=== PATIENT | male | born 1950 | race Caucasian/White ===

== ENCOUNTER 2018-09-02 05:34 | Inpatient (IN) ==
[2018-09-02] MEDS ORDERED: ceFAZolin 1,000 MG VIAL ONE (05:54)
[2018-09-02] MEDS ORDERED: VANCOMYCIN 1,000 MG VIAL ONE (05:54)
[2018-09-02] MEDS ORDERED: ceFAZolin 1,000 MG in SYRINGE 1 EACH IV ONE (06:00)
[2018-09-02] MEDS ORDERED: VANCOMYCIN INJ 1,000 MG in SODIUM CHLORIDE 0.9% 250 ML IV ONE (06:00)
[2018-09-02] MEDS: LACTATED RINGERS 1,000 ML IV SCH (06:30)
[2018-09-02] MEDS ORDERED: ROPIVACAINE 0.5% 30 ML VIAL ONE (06:33)
[2018-09-02] MEDS ORDERED: TRANEXAMIC ACID 1,000 MG/10 ML VIAL ONE (06:36)
[2018-09-02] MEDS ORDERED: LACTULOSE 20 GM/30 ML UDCUP PO PRN (06:56)
[2018-09-02] MEDS ORDERED: ONDANSETRON 4 MG/2 ML VIAL IV PRN ×2 (06:56→08:57)
[2018-09-02] MEDS ORDERED: NALOXONE 0.4 MG/ML VIAL IV PRN (06:56)
[2018-09-02] MEDS ORDERED: PROMETHAZINE 25 MG/1 ML VIAL IM PRN (06:56)
[2018-09-02] MEDS ORDERED: BISACODYL 10 MG SUPP RECTAL PRN (06:56)
[2018-09-02] MEDS ORDERED: TEMAZEPAM 7.5 MG CAPSULE PO PRN (06:56)
[2018-09-02] MEDS ORDERED: MAGNESIUM HYDROXIDE SUSP 30 ML UDCUP PO PRN (06:56)
[2018-09-02] MEDS ORDERED: MORPHINE 4 MG/1 ML VIAL IV PRN ×2 (06:56→09:36)
[2018-09-02] MEDS ORDERED: MORPHINE PCA 30 MG/30 ML SYRINGE IV ONE (08:51)
[2018-09-02] MEDS ORDERED: SEVOFLURANE 1 UNIT/15 MINUTE INH ONE (08:55)
[2018-09-02] MEDS ORDERED: PROPOFOL 200 MG/20 ML VIAL IV ONE (08:55)
[2018-09-02] MEDS ORDERED: MIDAZOLAM 2 MG/2 ML VIAL ONE (08:56)
[2018-09-02] MEDS ORDERED: fentaNYL 100 MCG/2 ML VIAL ONE ×2 (08:56)
[2018-09-02] MEDS ORDERED: ePHEDrine 50 MG/ML AMP ONE (08:57)
[2018-09-02] MEDS ORDERED: SODIUM CHLORIDE 0.9% 100 ML IV ONE (08:57)
[2018-09-02] MEDS ORDERED: ONDANSETRON 4 MG/2 ML VIAL ONE (08:57)
[2018-09-02] MEDS ORDERED: LACTATED RINGERS 1,000 ML IV ONE (08:57)
[2018-09-02] MEDS ORDERED: GLYCOPYRROLATE 0.4 MG/2 ML VIAL ONE (08:57)
[2018-09-02] MEDS ORDERED: ACETAMINOPHEN 1,000 MG/100 ML VIAL IV ONE (08:57)
[2018-09-02] MEDS: MORPHINE PCA 30 MG/30 ML SYRINGE IV SCH ×2 (09:02→17:36)
[2018-09-02] MEDS: HYDROmorphone 2 MG/1 ML VIAL IV PRN ×4 (09:02→09:58)
[2018-09-02] MEDS: DUTASTERIDE 0.5 MG CAPSULE PO SCH (10:34)
[2018-09-02] MEDS: TAMSULOSIN 0.4 MG CAPSULE PO SCH ×2 (10:34→20:08)
[2018-09-02] MEDS: DOCUSATE SODIUM 100 MG CAPSULE PO SCH ×2 (10:34→20:08)
[2018-09-02] MEDS: sulfaSALAzine 500 MG TABLET PO SCH ×2 (10:34→20:08)
[2018-09-02] MEDS: hydroCHLOROthiazide 12.5 MG CAPSULE PO SCH (10:34)
[2018-09-02] MEDS: ATENOLOL 50 MG TABLET PO SCH (10:35)
[2018-09-02] MEDS ORDERED: PNEUMOCOCCAL VACCINE (13 VALENT) 0.5 ML SYRINGE IM ONE (10:39)
[2018-09-02] MEDS ORDERED: INFLUENZA VIRUS VACCINE 0.5 ML SYRINGE IM ONE (10:39)
[2018-09-02] MEDS: POTASSIUM CHLORIDE 10 MEQ TABLET PO SCH (10:56)
[2018-09-02] MEDS: ceFAZolin 2,000 MG in PREMIX 1 EACH IV SCH ×2 (12:55→20:08)
[2018-09-02] MEDS: FONDAPARINUX 2.5 MG/0.5 ML SYRINGE SUBCUT SCH (17:54)
[2018-09-03 04:45] LABS: Basophils % 0.1 % (0.0-0.8); Eosinophils # 0.1 10*3/uL (0.0-0.87); Eosinophils % 0.6 % (0.00-10.9); Hematocrit 33.5 VOL% (42.0-52.0); Hemoglobin 10.9 GM/DL (14.0-18.0); Immature Granulocytes % 0.3 %; Immature Granulocytes Absolute 0.03 #; Lymphocytes # 1.5 10*3/uL (1.4-4.0); Lymphocytes % 17.7 % (21.2-54.2); Mean Corpuscular HGB Conc 32.5 GM/DL (32-36); Mean Corpuscular Hemoglobin 31 PG (27-34); Mean Corpuscular Volume 95.2 FL (87-102); Mean Platelet Volume 10.6 FL (9.6-12.0); Monocytes # 1.3 10*3/uL (0.11-0.8); Monocytes % 14.9 % (1.7-12.7); Neutrophils # 5.7 10*3/uL (1.4-7.4); Neutrophils % 66.4 % (38.7-73.9); Platelet Count 151 T/CUMM (130-400); Red Blood Count 3.52 MC/CUMM (3.8-5.5); Red Cell Distribution Width 12.7 % (9.3-17.3); White Blood Count 8.6 T/CUMM (4-12)
[2018-09-03 05:07] LABS: Calcium 8.1 MG/DL (8.5-10.1); Osmolality,Calculated 279.5 MOS/KG (273-304); Potassium 3.5 MMOL/L (3.5-5.1)
[2018-09-03] MEDS: sulfaSALAzine 500 MG TABLET PO SCH ×2 (09:36→21:44)
[2018-09-03] MEDS: DUTASTERIDE 0.5 MG CAPSULE PO SCH (09:37)
[2018-09-03] MEDS: TAMSULOSIN 0.4 MG CAPSULE PO SCH ×2 (09:37→21:44)
[2018-09-03] MEDS: hydroCHLOROthiazide 12.5 MG CAPSULE PO SCH (09:37)
[2018-09-03] MEDS: POTASSIUM CHLORIDE 10 MEQ TABLET PO SCH (09:39)
[2018-09-03] MEDS: ATENOLOL 50 MG TABLET PO SCH (09:39)
[2018-09-03] MEDS: DOCUSATE SODIUM 100 MG CAPSULE PO SCH ×2 (09:39→21:44)
[2018-09-03] MEDS: LACTATED RINGERS 1,000 ML IV SCH ×2 (09:40→15:40)
[2018-09-03] MEDS: MORPHINE PCA 30 MG/30 ML SYRINGE IV SCH ×2 (09:41→16:14)
[2018-09-03] MEDS: oxyCODONE/ACETAMINOPHEN 5-325 MG TABLET PO PRN (19:00)
[2018-09-03] MEDS: FONDAPARINUX 2.5 MG/0.5 ML SYRINGE SUBCUT SCH (19:35)
[2018-09-04 05:11] LABS: Basophils % 0.2 % (0.0-0.8); Eosinophils # 0.2 10*3/uL (0.0-0.87); Eosinophils % 2.6 % (0.00-10.9); Hematocrit 32.5 VOL% (42.0-52.0); Hemoglobin 10.6 GM/DL (14.0-18.0); Immature Granulocytes % 0.3 %; Immature Granulocytes Absolute 0.03 #; Lymphocytes # 1.6 10*3/uL (1.4-4.0); Lymphocytes % 17.8 % (21.2-54.2); Mean Corpuscular HGB Conc 32.6 GM/DL (32-36); Mean Corpuscular Hemoglobin 31 PG (27-34); Mean Corpuscular Volume 94.8 FL (87-102); Mean Platelet Volume 10.4 FL (9.6-12.0); Monocytes # 1.3 10*3/uL (0.11-0.8); Monocytes % 14.9 % (1.7-12.7); Neutrophils # 5.7 10*3/uL (1.4-7.4); Neutrophils % 64.2 % (38.7-73.9); Platelet Count 138 T/CUMM (130-400); Red Blood Count 3.43 MC/CUMM (3.8-5.5); Red Cell Distribution Width 12.4 % (9.3-17.3); White Blood Count 8.9 T/CUMM (4-12)
[2018-09-04] MEDS: oxyCODONE/ACETAMINOPHEN 5-325 MG TABLET PO PRN ×4 (05:11→23:33)
[2018-09-04 05:38] LABS: Calcium 8.1 MG/DL (8.5-10.1); Osmolality,Calculated 274.8 MOS/KG (273-304); Potassium 3.4 MMOL/L (3.5-5.1)
[2018-09-04] MEDS: ATENOLOL 50 MG TABLET PO SCH (09:40)
[2018-09-04] MEDS: TAMSULOSIN 0.4 MG CAPSULE PO SCH ×2 (09:41→20:48)
[2018-09-04] MEDS: POTASSIUM CHLORIDE 10 MEQ TABLET PO SCH ×2 (09:41→20:49)
[2018-09-04] MEDS: DOCUSATE SODIUM 100 MG CAPSULE PO SCH ×2 (09:41→20:48)
[2018-09-04] MEDS: DUTASTERIDE 0.5 MG CAPSULE PO SCH (09:41)
[2018-09-04] MEDS: sulfaSALAzine 500 MG TABLET PO SCH ×2 (09:42→20:48)
[2018-09-04] MEDS: hydroCHLOROthiazide 12.5 MG CAPSULE PO SCH (09:43)
[2018-09-04] MEDS: FONDAPARINUX 2.5 MG/0.5 ML SYRINGE SUBCUT SCH (17:41)
[2018-09-04] MEDS: LACTATED RINGERS 1,000 ML IV SCH (18:57)
[2018-09-05] MEDS: oxyCODONE/ACETAMINOPHEN 5-325 MG TABLET PO PRN (07:02)
[2018-09-05] MEDS: DOCUSATE SODIUM 100 MG CAPSULE PO SCH (09:00)
[2018-09-05] MEDS: sulfaSALAzine 500 MG TABLET PO SCH (09:01)
[2018-09-05] MEDS: hydroCHLOROthiazide 12.5 MG CAPSULE PO SCH (09:01)
[2018-09-05] MEDS: POTASSIUM CHLORIDE 10 MEQ TABLET PO SCH (09:01)
[2018-09-05] MEDS: ATENOLOL 50 MG TABLET PO SCH (09:02)
[2018-09-05] MEDS: DUTASTERIDE 0.5 MG CAPSULE PO SCH (09:02)
[2018-09-05] MEDS: TAMSULOSIN 0.4 MG CAPSULE PO SCH (09:02)
[2018-09-05 11:26] VITALS: BP 133/71
== END 2018-09-05 11:40 | disposition home health service (06) | DRG 470 ==
LOC: N.OR 05:34 → N.SDSINP 05:34 → N.3E 09:09
PROVIDERS: ADMIT Orthopaedic Surgery; ATTEND Orthopaedic Surgery

== ENCOUNTER 2019-07-22 08:39 | Inpatient (IN) ==
[~2019-07-22 08:39] MED LIST: DEXTROSE 10% 25 GM/250 ML BAG IV PRN; GLUCAGON 1 MG VIAL IM PRN; ZALEPLON 5 MG CAPSULE PO PRN
[2019-07-22 09:50] LABS: Basophils % 0.4 % (0.0-0.8); Eosinophils # 0.1 10*3/uL (0.0-0.87); Eosinophils % 2.6 % (0.00-10.9); Hematocrit 38.7 VOL% (42.0-52.0); Hemoglobin 13.2 GM/DL (14.0-18.0); Immature Granulocytes % 0.2 %; Immature Granulocytes Absolute 0.01 #; Lymphocytes # 1.4 10*3/uL (1.4-4.0); Lymphocytes % 25.8 % (21.2-54.2); Mean Corpuscular HGB Conc 34.1 GM/DL (32-36); Mean Corpuscular Volume 94.2 FL (87-102); Mean Platelet Volume 10.1 FL (9.6-12.0); Monocytes % 12.6 % (1.7-12.7); Neutrophils % 58.4 % (38.7-73.9); Platelet Count 171 T/CUMM (130-400); Red Blood Count 4.11 MC/CUMM (3.8-5.5); Red Cell Distribution Width 12.2 % (9.3-17.3); White Blood Count 5.3 T/CUMM (4-12)
[2019-07-22 10:16] LABS: Albumin 3.5 G/DL (3.4-5.0); Bilirubin,Total 1.1 MG/DL (0.2-1.0); Calcium 8.8 MG/DL (8.5-10.1); Osmolality,Calculated 283.3 MOS/KG (273-304); Total Protein 7.1 G/DL (6.4-8.3)
[2019-07-22] MEDS: sulfaSALAzine 500 MG TABLET PO SCH ×2 (11:28→22:16)
[2019-07-22] MEDS: DUTASTERIDE 0.5 MG CAPSULE PO SCH (11:28)
[2019-07-22] MEDS: MELOXICAM 7.5 MG TABLET PO SCH (11:29)
[2019-07-22] MEDS: hydroCHLOROthiazide 12.5 MG CAPSULE PO SCH (11:29)
[2019-07-22] MEDS: ATENOLOL 50 MG TABLET PO SCH (11:29)
[2019-07-22] MEDS: ASCORBIC ACID 500 MG TABLET PO SCH ×2 (11:29→22:15)
[2019-07-22] MEDS: TAMSULOSIN 0.4 MG CAPSULE PO SCH ×2 (11:29→22:15)
[2019-07-22] MEDS: SODIUM CHLORIDE 0.9% 1,000 ML IV SCH (11:30)
[2019-07-22] MEDS ORDERED: CLORAZEPATE 3.75 MG TABLET PO PRN (11:36)
[2019-07-22 11:53] LABS: ABG Base Excess 2.1 MMOL/L (-2.5-2.5); ABG HCO3 26.3 MMOL/L (20-26); ABG PCO2 37.9 MM HG (35-48); ABG PH 7.445 (7.35-7.45); ABG PO2 94.1 MM HG (80-95); ABG TCO2 22.3 MMOL/L (23-27); Pt O2 Delivery Device Room Air
[2019-07-22] MEDS: CHLORHEXIDINE 0.12% ORAL RINSE 60 ML BOTTLE SWISH/SPIT SCH ×2 (12:35→22:16)
[2019-07-22] MEDS: CHLORHEXIDINE 4% SOLN 118 ML BOTTLE TOP SCH ×2 (16:16→22:17)
[2019-07-22] MEDS ORDERED: cloNIDine 0.1 MG TABLET PO SCH (21:00)
[2019-07-22] MEDS ORDERED: ATORVASTATIN 40 MG TABLET PO SCH (21:00)
[2019-07-23] MEDS ORDERED: VANCOMYCIN 1,000 MG VIAL ONE (05:10)
[2019-07-23] MEDS: ATENOLOL 50 MG TABLET PO SCH ×2 (05:50→09:32)
[2019-07-23] MEDS ORDERED: CEFUROXIME INJ 1,500 MG in SYRINGE 1 EACH IV ONE (06:00)
[2019-07-23] MEDS ORDERED: MIDAZOLAM 10 MG/2 ML VIAL ONE (06:08)
[2019-07-23] MEDS ORDERED: SUFentanil 250 MCG/5 ML AMP ONE ×2 (06:08→11:10)
[2019-07-23] MEDS ORDERED: DIAZEPAM 5 MG TABLET PO ONE (06:30)
[2019-07-23] MEDS ORDERED: FAMOTIDINE 20 MG TABLET PO ONE (06:30)
[2019-07-23 07:41] LABS: ABG Base Excess 0.3 MMOL/L (-2.5-2.5); ABG HCO3 24.7 MMOL/L (20-26); ABG Oxygen Saturation 99.1 % (95-100); ABG PCO2 39.6 MM HG (35-48); ABG PH 7.406 (7.35-7.45); ABG TCO2 21.9 MMOL/L (23-27); Glucose Heart Surgery 116 MG/DL (74-106); Hematocrit Heart Surgery 38.5 PERCENT (42-52); Hemoglobin Heart Surgery 12.5 G/DL (14.0-18.0); Ionized Calcium Arterial 1.15 MMOL/L (1.21-1.46); PCO2 Patient Temp Arterial 39.6 MMHG; PH Patient Temp Arterial 7.406; Patient Temperature 37 CELCIUS; Potassium Heart/CVR 3.3 MMOL/L (3.5-5.1); Sodium Heart/CVR 138 MMOL/L (135-145)
[2019-07-23 08:19] LABS: Apearance,Urine CLEAR (Clear); Bilirubin,Urine Negative (Negative); Blood, Urine Negative (Negative); Glucose,Urine (UA) Negative (Negative); Hyaline Casts,Urine 1 /LPF (0-3); Ketones,Urine 5 mg/dL (Negative); Mucus,Urine Few /LPF (Occasional); Nitrite,Urine Negative (Negative); Protein,Urine Negative; RBC,Urine 1 /HPF (0-4); Squamous Epithelial Cell,Urine Occasional /HPF (0-10); Urine Color Amber (Yellow); Urine Specific Gravity 1.026 (1.001-1.035); WBC,Urine 2 /HPF (0-6)
[2019-07-23] MEDS ORDERED: MINERAL OIL/PETROLATUM OPH OINT 3.5 GM TUBE ONE (08:33)
[2019-07-23] MEDS ORDERED: HEPARIN/NACL 0.9% 2 UNITS/ML 500 ML IV ONE (08:33)
[2019-07-23] MEDS ORDERED: CALCIUM CHLORIDE 1,000 MG/10 ML VIAL IV ONE ×2 (08:33→13:37)
[2019-07-23] MEDS ORDERED: PHENYLEPHRINE 10 MG/1 ML VIAL IV ONE (08:33)
[2019-07-23] MEDS ORDERED: AMINOCAPROIC ACID 5,000 MG/20 ML VIAL ONE (08:34)
[2019-07-23] MEDS ORDERED: NITROGLYCERIN DRIP 50 MG/250 ML BOTTLE IV ONE (08:34)
[2019-07-23 08:37] LABS: Hematocrit Heart Surgery 28.6 PERCENT (42-52); Hemoglobin Heart Surgery 9.2 G/DL (14.0-18.0); PCO2 Patient Temp Venous 33.2 MM HG; PH Patient Temp Venous 7.459; PO2 Patient Temp Venous 40.8 MM HG; Potassium Heart/CVR 3.6 MMOL/L (3.5-5.1); VBG Base Excess 0.2 MEQ/L (0-4); VBG HCO3 24.4 MEQ/L (24-28); VBG Oxygen Saturation 85.3 %; VBG PCO2 38.4 MMHG (41-51); VBG PH 7.415; VBG PO2 50.1 MMHG (17-40)
[2019-07-23 09:11] LABS: Hematocrit Heart Surgery 30.5 PERCENT (42-52); Hemoglobin Heart Surgery 9.8 G/DL (14.0-18.0); PCO2 Patient Temp Venous 28.2 MM HG; PH Patient Temp Venous 7.531; Potassium Heart/CVR 3.6 MMOL/L (3.5-5.1); VBG Base Excess 1.7 MEQ/L (0-4); VBG HCO3 25.7 MEQ/L (24-28); VBG Oxygen Saturation 84.3 %; VBG PH 7.456; VBG PO2 46.7 MMHG (17-40)
[2019-07-23] MEDS: TAMSULOSIN 0.4 MG CAPSULE PO SCH (09:31)
[2019-07-23] MEDS: CHLORHEXIDINE 4% SOLN 118 ML BOTTLE TOP SCH (09:31)
[2019-07-23] MEDS: hydroCHLOROthiazide 12.5 MG CAPSULE PO SCH (09:31)
[2019-07-23] MEDS: sulfaSALAzine 500 MG TABLET PO SCH (09:31)
[2019-07-23] MEDS: DUTASTERIDE 0.5 MG CAPSULE PO SCH (09:31)
[2019-07-23] MEDS: ASCORBIC ACID 500 MG TABLET PO SCH (09:32)
[2019-07-23] MEDS: CHLORHEXIDINE 0.12% ORAL RINSE 60 ML BOTTLE SWISH/SPIT SCH ×2 (09:32→22:28)
[2019-07-23] MEDS: SODIUM CHLORIDE 0.9% 1,000 ML IV SCH (09:32)
[2019-07-23] MEDS: MELOXICAM 7.5 MG TABLET PO SCH (09:32)
[2019-07-23 09:41] LABS: Hematocrit Heart Surgery 31.9 PERCENT (42-52); Hemoglobin Heart Surgery 10.3 G/DL (14.0-18.0); PCO2 Patient Temp Venous 29.4 MM HG; PH Patient Temp Venous 7.519; PO2 Patient Temp Venous 36.1 MM HG; Potassium Heart/CVR 3.9 MMOL/L (3.5-5.1); VBG Base Excess 1.7 MEQ/L (0-4); VBG HCO3 25.7 MEQ/L (24-28); VBG Oxygen Saturation 84.1 %; VBG PCO2 35.6 MMHG (41-51); VBG PH 7.459; VBG PO2 47.6 MMHG (17-40)
[2019-07-23] MEDS ORDERED: ALBUMIN 5% 12.5 GM/250 ML VIAL IV ONE ×2 (09:52)
[2019-07-23] MEDS ORDERED: SEVOFLURANE 1 UNIT/15 MINUTE INH ONE ×2 (10:00→13:37)
[2019-07-23 10:11] LABS: Hematocrit Heart Surgery 31.8 PERCENT (42-52); Hemoglobin Heart Surgery 10.3 G/DL (14.0-18.0); PCO2 Patient Temp Venous 36.6 MM HG; PH Patient Temp Venous 7.444; PO2 Patient Temp Venous 45.4 MM HG; Potassium Heart/CVR 3.8 MMOL/L (3.5-5.1); VBG Base Excess 1.2 MEQ/L (0-4); VBG HCO3 25.2 MEQ/L (24-28); VBG Oxygen Saturation 82.1 %; VBG PCO2 36.6 MMHG (41-51); VBG PH 7.444; VBG PO2 45.4 MMHG (17-40)
[2019-07-23 10:38] LABS: Hematocrit Heart Surgery 29.2 PERCENT (42-52); Hemoglobin Heart Surgery 9.4 G/DL (14.0-18.0); PCO2 Patient Temp Venous 36.7 MM HG; PH Patient Temp Venous 7.449; PO2 Patient Temp Venous 50.4 MM HG; VBG Base Excess 1.6 MEQ/L (0-4); VBG HCO3 25.7 MEQ/L (24-28); VBG Oxygen Saturation 86.1 %; VBG PCO2 36.7 MMHG (41-51); VBG PH 7.449; VBG PO2 50.4 MMHG (17-40)
[2019-07-23 11:10] LABS: Hemoglobin Heart Surgery 9.3 G/DL (14.0-18.0); PCO2 Patient Temp Venous 34.6 MM HG; PH Patient Temp Venous 7.48; PO2 Patient Temp Venous 37.4 MM HG; Potassium Heart/CVR 4.6 MMOL/L (3.5-5.1); VBG Base Excess 2.5 MEQ/L (0-4); VBG HCO3 26.4 MEQ/L (24-28); VBG Oxygen Saturation 79.4 %; VBG PCO2 38.1 MMHG (41-51); VBG PH 7.45
[2019-07-23] MEDS ORDERED: ALBUMIN 25% 25 GM/100 ML VIAL IV ONE (11:46)
[2019-07-23] MEDS ORDERED: MANNITOL 100 GM/500 ML BAG IV ONE (11:46)
[2019-07-23] MEDS ORDERED: LIDOCAINE 1% 5 ML VIAL ONE (11:46)
[2019-07-23] MEDS ORDERED: DEXTROSE 5% KCL 20 MEQ 40 MEQ/2,000 ML BAG IV ONE (11:46)
[2019-07-23] MEDS ORDERED: SODIUM BICARBONATE 50 MEQ/50 ML VIAL IV ONE (11:46)
[2019-07-23] MEDS ORDERED: methylPREDNISolone SOD SUC 1,000 MG/8 ML VIAL ONE (11:47)
[2019-07-23] MEDS ORDERED: MAGNESIUM SULFATE 5 GM/10 ML VIAL IV ONE (11:47)
[2019-07-23] MEDS ORDERED: HEPARIN 10,000 UNIT/10 ML VIAL ONE (11:47)
[2019-07-23] MEDS ORDERED: FUROSEMIDE 20 MG/2 ML VIAL ONE (11:47)
[2019-07-23] MEDS ORDERED: PROTAMINE SULFATE 50 MG/5 ML VIAL IV ONE (11:47)
[2019-07-23] MEDS ORDERED: PROTAMINE SULFATE 250 MG/25 ML VIAL IV ONE (11:47)
[2019-07-23 11:57] LABS: ABG Base Excess -2.6 MMOL/L (-2.5-2.5); ABG HCO3 22.3 MMOL/L (20-26); ABG Oxygen Saturation 98.1 % (95-100); ABG PCO2 44.7 MM HG (35-48); ABG PH 7.326 (7.35-7.45); ABG TCO2 22.1 MMOL/L (23-27); Glucose Heart Surgery 150 MG/DL (74-106); Hematocrit Heart Surgery 23.3 PERCENT (42-52); Hemoglobin Heart Surgery 7.5 G/DL (14.0-18.0); Ionized Calcium Arterial 1.26 MMOL/L (1.21-1.46); PCO2 Patient Temp Arterial 44.7 MMHG; PH Patient Temp Arterial 7.326; Patient Temperature 37 CELCIUS; Potassium Heart/CVR 3.7 MMOL/L (3.5-5.1); Sodium Heart/CVR 136 MMOL/L (135-145)
[2019-07-23] MEDS ORDERED: POTASSIUM CHLORIDE RIDER 100 ML IV ONE (12:15)
[2019-07-23] MEDS ORDERED: PHENYLEPHRINE DRIP 40 MG/250 ML PREMIX IV ONE (12:26)
[2019-07-23] MEDS: SODIUM CHLORIDE 0.45% 1,000 ML IV SCH ×2 (12:55→14:44)
[2019-07-23] MEDS: LACTATED RINGERS 1,000 ML IV PRN ×3 (12:55→22:03)
[2019-07-23] MEDS ORDERED: MAGNESIUM SULF RIDER 4 GM in PREMIX 1 EACH IV PRN (13:30)
[2019-07-23] MEDS ORDERED: INSULIN REGULAR 100 UNIT/ML IV ONE (13:30)
[2019-07-23] MEDS ORDERED: MAGNESIUM SULF RIDER 2 GM in PREMIX 1 EACH IV PRN (13:30)
[2019-07-23] MEDS ORDERED: ONDANSETRON 4 MG/2 ML VIAL IV PRN (13:30)
[2019-07-23] MEDS ORDERED: CALCIUM CHLORIDE 1,000 MG/10 ML SYRINGE IV PRN (13:30)
[2019-07-23] MEDS ORDERED: VECURONIUM 10 MG VIAL IV PRN ×2 (13:30)
[2019-07-23] MEDS ORDERED: ACETAMINOPHEN 650 MG SUPP RECTAL PRN (13:30)
[2019-07-23] MEDS ORDERED: MIDAZOLAM 2 MG/2 ML VIAL IV PRN (13:30)
[2019-07-23] MEDS ORDERED: PHENYLEPHRINE DRIP 40 MG/250 ML PREMIX IV PRN (13:30)
[2019-07-23] MEDS ORDERED: MIDAZOLAM 10 MG/2 ML VIAL IV PRN (13:30)
[2019-07-23] MEDS ORDERED: INSULIN REGULAR 100 UNIT/ML IV PRN (13:30)
[2019-07-23] MEDS ORDERED: ALBUMIN 5% 12.5 GM in PREMIX 1 EACH IV PRN (13:30)
[2019-07-23] MEDS ORDERED: LACTATED RINGERS 250 ML IV PRN (13:30)
[2019-07-23] MEDS ORDERED: DEXTROSE 10% 250 ML BAG IV PRN ×2 (13:30)
[2019-07-23] MEDS ORDERED: INSULIN REGULAR DRIP 100 ML IV SCH (13:30)
[2019-07-23 13:32] LABS: ABG Base Excess -2.4 MMOL/L (-2.5-2.5); ABG HCO3 22.4 MMOL/L (20-26); ABG Oxygen Saturation 99.1 % (95-100); ABG PH 7.356 (7.35-7.45); ABG TCO2 21.5 MMOL/L (23-27); Glucose Heart Surgery 125 MG/DL (74-106); Hematocrit Heart Surgery 24.4 PERCENT (42-52); Hemoglobin Heart Surgery 7.8 G/DL (14.0-18.0); Potassium Heart/CVR 3.3 MMOL/L (3.5-5.1)
[2019-07-23] MEDS ORDERED: LIDOCAINE 2% 5 ML VIAL ONE (13:37)
[2019-07-23] MEDS ORDERED: SUCCINYLCHOLINE 200 MG/10 ML VIAL ONE (13:38)
[2019-07-23] MEDS ORDERED: SODIUM CHLORIDE 0.9% 250 ML IV ONE (13:38)
[2019-07-23] MEDS ORDERED: GLYCOPYRROLATE 0.4 MG/2 ML VIAL ONE (13:38)
[2019-07-23] MEDS ORDERED: ETOMIDATE 40 MG/20 ML VIAL IV ONE (13:38)
[2019-07-23] MEDS ORDERED: SODIUM CHLORIDE 0.9% 1,000 ML IV ONE (13:38)
[2019-07-23] MEDS: POTASSIUM CHLORIDE RIDER 20 MEQ in PREMIX 1 EACH IV PRN ×3 (13:50→18:38)
[2019-07-23 13:56] LABS: Albumin 2.5 G/DL (3.4-5.0); Bilirubin,Total 1.2 MG/DL (0.2-1.0); Calcium 8.4 MG/DL (8.5-10.1); Osmolality,Calculated 291.7 MOS/KG (273-304); Total Protein 4.7 G/DL (6.4-8.3); Troponin I 5.06 NG/ML (0.00-0.045)
[2019-07-23] MEDS: KETOROLAC 30 MG/1 ML VIAL IV SCH ×2 (14:43→19:51)
[2019-07-23 15:18] LABS: ABG Base Excess -2.9 MMOL/L (-2.5-2.5); ABG Oxygen Saturation 99.4 % (95-100); ABG PCO2 46.7 MM HG (35-48); ABG PH 7.309 (7.35-7.45); ABG TCO2 21.7 MMOL/L (23-27); Glucose Heart Surgery 178 MG/DL (74-106); Hematocrit Heart Surgery 28.9 PERCENT (42-52); Hemoglobin Heart Surgery 9.3 G/DL (14.0-18.0); Potassium Heart/CVR 3.9 MMOL/L (3.5-5.1)
[2019-07-23 15:41] LABS: Basophils % 0.2 % (0.0-0.8); Eosinophils # 0.1 10*3/uL (0.0-0.87); Eosinophils % 0.7 % (0.00-10.9); Hematocrit 22.6 VOL% (42.0-52.0); Hemoglobin 7.7 GM/DL (14.0-18.0); Immature Granulocytes Absolute 0.17 #; Lymphocytes # 1.2 10*3/uL (1.4-4.0); Lymphocytes % 7.4 % (21.2-54.2); Mean Corpuscular HGB Conc 34.1 GM/DL (32-36); Mean Platelet Volume 10.5 FL (9.6-12.0); Monocytes % 6.7 % (1.7-12.7); Platelet Count 182 T/CUMM (130-400); Red Blood Count 2.33 MC/CUMM (3.8-5.5); Red Cell Distribution Width 12.6 % (9.3-17.3); White Blood Count 16.4 T/CUMM (4-12)
[2019-07-23 15:47] LABS: INR 1.3; PT Patient Result 13.6 SECS (9.6-12.2); Partial Thromboplastin Time 26.8 SECS (20.8-36.0)
[2019-07-23] MEDS ORDERED: PROPOFOL 1,000 MG/100 ML BOTTLE IV ONE (16:07)
[2019-07-23] MEDS: PROPOFOL 1,000 MG/100 ML BOTTLE IV SCH ×2 (16:15→21:10)
[2019-07-23 16:26] LABS: ABG HCO3 21.9 MMOL/L (20-26); ABG Oxygen Saturation 98.9 % (95-100); ABG PCO2 38.9 MM HG (35-48); ABG PH 7.362 (7.35-7.45); ABG TCO2 20.2 MMOL/L (23-27); Glucose Heart Surgery 176 MG/DL (74-106); Hematocrit Heart Surgery 30.4 PERCENT (42-52); Hemoglobin Heart Surgery 9.8 G/DL (14.0-18.0); Potassium Heart/CVR 4.6 MMOL/L (3.5-5.1)
[2019-07-23 17:14] LABS: ABG HCO3 22.7 MMOL/L (20-26); ABG Oxygen Saturation 98.1 % (95-100); ABG PCO2 35.3 MM HG (35-48); ABG PH 7.407 (7.35-7.45); ABG TCO2 20.3 MMOL/L (23-27); Glucose Heart Surgery 177 MG/DL (74-106); Hematocrit Heart Surgery 29.3 PERCENT (42-52); Hemoglobin Heart Surgery 9.5 G/DL (14.0-18.0); Potassium Heart/CVR 4.3 MMOL/L (3.5-5.1)
[2019-07-23 18:59] LABS: ABG Base Excess -2.2 MMOL/L (-2.5-2.5); ABG HCO3 22.6 MMOL/L (20-26); ABG Oxygen Saturation 97.4 % (95-100); ABG PCO2 33.7 MM HG (35-48); ABG PH 7.418 (7.35-7.45); ABG TCO2 19.7 MMOL/L (23-27); Glucose Heart Surgery 174 MG/DL (74-106); Hematocrit Heart Surgery 30.9 PERCENT (42-52); Potassium Heart/CVR 4.6 MMOL/L (3.5-5.1)
[2019-07-23] MEDS ORDERED: FUROSEMIDE 40 MG/4 ML VIAL IV ONE (19:38)
[2019-07-23] MEDS ORDERED: SODIUM CHLORIDE 0.9% 100 ML IV ONE (21:51)
[2019-07-23] MEDS: CEFUROXIME INJ 1,500 MG in SYRINGE 1 EACH IV SCH (21:59)
[2019-07-23 22:26] LABS: Troponin I 23.3 NG/ML (0.00-0.045)
[2019-07-24 00:08] LABS: ABG Base Excess -2.2 MMOL/L (-2.5-2.5); ABG HCO3 22.7 MMOL/L (20-26); ABG PCO2 39.3 MM HG (35-48); ABG PO2 74.3 MM HG (80-95); ABG TCO2 23.9 MMOL/L (23-27); Glucose Heart Surgery 99 MG/DL (74-106); Potassium Heart/CVR 3.9 MMOL/L (3.5-5.1)
[2019-07-24] MEDS ORDERED: NITROPRUSSIDE 50 MG/2 ML VIAL ONE (00:55)
[2019-07-24] MEDS: NITROPRUSSIDE 100 MG in DEXTROSE 5% 250 ML IV PRN ×2 (01:01→21:30)
[2019-07-24] MEDS ORDERED: FUROSEMIDE 40 MG/4 ML VIAL IV ONE (01:03)
[2019-07-24] MEDS: PROPOFOL 1,000 MG/100 ML BOTTLE IV SCH ×2 (01:35→05:51)
[2019-07-24] MEDS: KETOROLAC 30 MG/1 ML VIAL IV SCH ×2 (01:38→07:54)
[2019-07-24 02:05] LABS: ABG Base Excess -3.2 MMOL/L (-2.5-2.5); ABG HCO3 21.7 MMOL/L (20-26); ABG Oxygen Saturation 93.7 % (95-100); ABG PH 7.344 (7.35-7.45); ABG PO2 70.1 MM HG (80-95); ABG TCO2 20.4 MMOL/L (23-27); Glucose Heart Surgery 110 MG/DL (74-106)
[2019-07-24 03:34] LABS: ABG Base Excess -2.1 MMOL/L (-2.5-2.5); ABG HCO3 22.6 MMOL/L (20-26); ABG Oxygen Saturation 95.3 % (95-100); ABG PCO2 41.4 MM HG (35-48); ABG PH 7.358 (7.35-7.45); ABG PO2 79.3 MM HG (80-95); ABG TCO2 20.7 MMOL/L (23-27); Glucose Heart Surgery 116 MG/DL (74-106); Hematocrit Heart Surgery 37.8 PERCENT (42-52); Hemoglobin Heart Surgery 12.3 G/DL (14.0-18.0); Potassium Heart/CVR 3.8 MMOL/L (3.5-5.1)
[2019-07-24] MEDS: POTASSIUM CHLORIDE RIDER 20 MEQ in PREMIX 1 EACH IV PRN ×2 (03:42→06:57)
[2019-07-24 03:47] LABS: Basophils % 0.1 % (0.0-0.8); Hematocrit 28.9 VOL% (42.0-52.0); Hemoglobin 9.7 GM/DL (14.0-18.0); Immature Granulocytes % 0.5 %; Immature Granulocytes Absolute 0.06 #; Lymphocytes # 0.8 10*3/uL (1.4-4.0); Lymphocytes % 7.4 % (21.2-54.2); Mean Corpuscular HGB Conc 33.6 GM/DL (32-36); Mean Corpuscular Volume 93.2 FL (87-102); Mean Platelet Volume 10.5 FL (9.6-12.0); Platelet Count 131 T/CUMM (130-400); White Blood Count 11.3 T/CUMM (4-12)
[2019-07-24 03:51] LABS: Albumin 2.6 G/DL (3.4-5.0); Bilirubin,Direct 0.26 MG/DL (0.0-0.20); Bilirubin,Total 0.8 MG/DL (0.2-1.0); Calcium 7.7 MG/DL (8.5-10.1); Osmolality,Calculated 290.8 MOS/KG (273-304)
[2019-07-24 03:59] LABS: Troponin I 23.6 NG/ML (0.00-0.045)
[2019-07-24] MEDS ORDERED: FUROSEMIDE 100 MG/10 ML VIAL IV ONE (03:59)
[2019-07-24] MEDS: POTASSIUM CHLORIDE RIDER 10 MEQ in PREMIX 1 EACH IV PRN (04:32)
[2019-07-24 06:33] LABS: ABG Base Excess -0.6 MMOL/L (-2.5-2.5); ABG HCO3 23.8 MMOL/L (20-26); ABG Oxygen Saturation 94.7 % (95-100); ABG PH 7.398 (7.35-7.45); ABG PO2 72.8 MM HG (80-95); ABG TCO2 21.9 MMOL/L (23-27); Glucose Heart Surgery 115 MG/DL (74-106); Hematocrit Heart Surgery 30.8 PERCENT (42-52); Potassium Heart/CVR 3.9 MMOL/L (3.5-5.1)
[2019-07-24] MEDS: MORPHINE 4 MG/1 ML VIAL IV PRN ×2 (07:31→12:51)
[2019-07-24 07:54] LABS: ABG Base Excess -4.1 MMOL/L (-2.5-2.5); ABG PCO2 41.1 MM HG (35-48); ABG PO2 72.7 MM HG (80-95); ABG TCO2 19.7 MMOL/L (23-27); Glucose Heart Surgery 132 MG/DL (74-106); Hemoglobin Heart Surgery 10.7 G/DL (14.0-18.0); Potassium Heart/CVR 4.2 MMOL/L (3.5-5.1)
[2019-07-24] MEDS ORDERED: GLUCAGON 1 MG VIAL IM PRN (08:58)
[2019-07-24] MEDS ORDERED: DEXTROSE 10% 250 ML BAG IV PRN (08:58)
[2019-07-24] MEDS ORDERED: hydroCHLOROthiazide 12.5 MG CAPSULE PO SCH (09:00)
[2019-07-24] MEDS ORDERED: MELOXICAM 7.5 MG TABLET PO SCH (09:00)
[2019-07-24] MEDS ORDERED: WARFARIN 10 MG TABLET PO ONE (09:02)
[2019-07-24] MEDS ORDERED: oxyCODONE/ACETAMINOPHEN 5-325 MG TABLET PO PRN (09:06)
[2019-07-24 09:10] LABS: ABG Base Excess -1.7 MMOL/L (-2.5-2.5); ABG HCO3 22.9 MMOL/L (20-26); ABG Oxygen Saturation 94.1 % (95-100); ABG PCO2 36.7 MM HG (35-48); ABG PO2 70.5 MM HG (80-95); ABG TCO2 20.6 MMOL/L (23-27); Glucose Heart Surgery 134 MG/DL (74-106); Hematocrit Heart Surgery 31.5 PERCENT (42-52); Hemoglobin Heart Surgery 10.2 G/DL (14.0-18.0); Potassium Heart/CVR 4.1 MMOL/L (3.5-5.1)
[2019-07-24] MEDS: INSULIN REGULAR 100 UNIT/ML SUBCUT SCH ×4 (09:16→20:58)
[2019-07-24] MEDS ORDERED: DUTASTERIDE 0.5 MG CAPSULE PO SCH (09:30)
[2019-07-24] MEDS ORDERED: TAMSULOSIN 0.4 MG CAPSULE PO SCH (09:30)
[2019-07-24] MEDS: ASPIRIN EC 81 MG TABLET PO SCH (09:44)
[2019-07-24] MEDS: CHLORHEXIDINE 0.12% ORAL RINSE 60 ML BOTTLE SWISH/SPIT SCH ×2 (09:44→20:57)
[2019-07-24] MEDS: CEFUROXIME INJ 1,500 MG in SYRINGE 1 EACH IV SCH ×2 (09:45→20:57)
[2019-07-24] MEDS: SODIUM CHLORIDE 0.45% 1,000 ML IV SCH ×2 (13:55→15:07)
[2019-07-24 14:22] LABS: CKMB % 4.8 %
[2019-07-24 14:24] LABS: Troponin I 26.2 NG/ML (0.00-0.045)
[2019-07-24] MEDS: MORPHINE 10 MG/1 ML VIAL IV PRN ×3 (16:33→22:24)
[2019-07-24] MEDS: ATORVASTATIN 40 MG TABLET PO SCH (20:56)
[2019-07-24] MEDS: TAMSULOSIN 0.4 MG CAPSULE PO SCH (20:56)
[2019-07-24] MEDS: ASCORBIC ACID 500 MG TABLET PO SCH (20:57)
[2019-07-24] MEDS ORDERED: ATORVASTATIN 40 MG TABLET PO SCH (21:00)
[2019-07-24] MEDS ORDERED: ASCORBIC ACID 500 MG TABLET PO SCH (21:00)
[2019-07-25] MEDS: INSULIN REGULAR 100 UNIT/ML SUBCUT SCH ×6 (00:16→22:01)
[2019-07-25] MEDS: MORPHINE 10 MG/1 ML VIAL IV PRN ×2 (02:53→06:02)
[2019-07-25 04:49] LABS: Basophils % 0.1 % (0.0-0.8); Hematocrit 27.4 VOL% (42.0-52.0); Immature Granulocytes % 0.8 %; Immature Granulocytes Absolute 0.15 #; Lymphocytes # 1.2 10*3/uL (1.4-4.0); Lymphocytes % 6.2 % (21.2-54.2); Mean Corpuscular HGB Conc 32.8 GM/DL (32-36); Mean Corpuscular Volume 95.5 FL (87-102); Mean Platelet Volume 10.9 FL (9.6-12.0); Monocytes % 13.8 % (1.7-12.7); NRBC # 0.02 10*3/uL; Neutrophils % 79.1 % (38.7-73.9); Platelet Count 134 T/CUMM (130-400); Red Blood Count 2.87 MC/CUMM (3.8-5.5); Red Cell Distribution Width 14.4 % (9.3-17.3); White Blood Count 18.8 T/CUMM (4-12)
[2019-07-25] MEDS ORDERED: FUROSEMIDE 40 MG/4 ML VIAL IV ONE ×2 (05:01→14:00)
[2019-07-25 05:03] LABS: INR 1.2; PT Patient Result 12.5 SECS (9.6-12.2)
[2019-07-25 05:14] LABS: Albumin 3.1 G/DL (3.4-5.0); Bilirubin,Direct 0.36 MG/DL (0.0-0.20); Bilirubin,Total 1.7 MG/DL (0.2-1.0); Calcium 8.1 MG/DL (8.5-10.1); Osmolality,Calculated 287.3 MOS/KG (273-304)
[2019-07-25] MEDS: POTASSIUM CHLORIDE RIDER 20 MEQ in PREMIX 1 EACH IV PRN ×2 (05:37→08:32)
[2019-07-25] MEDS: POTASSIUM CHLORIDE RIDER 10 MEQ in PREMIX 1 EACH IV PRN ×2 (06:07→10:00)
[2019-07-25] MEDS ORDERED: HEPARIN/NACL 0.9% 2 UNITS/ML 500 ML IV ONE (07:38)
[2019-07-25 07:54] LABS: ABG Base Excess 3.7 MMOL/L (-2.5-2.5); ABG HCO3 27.6 MMOL/L (20-26); ABG PCO2 41.8 MM HG (35-48); ABG PH 7.437 (7.35-7.45); ABG PO2 58.5 MM HG (80-95); ABG TCO2 25.8 MMOL/L (23-27); Glucose Heart Surgery 150 MG/DL (74-106); Hemoglobin Heart Surgery 9.4 G/DL (14.0-18.0); Potassium Heart/CVR 3.8 MMOL/L (3.5-5.1)
[2019-07-25] MEDS: ASPIRIN EC 81 MG TABLET PO SCH (08:30)
[2019-07-25] MEDS: DUTASTERIDE 0.5 MG CAPSULE PO SCH (08:30)
[2019-07-25] MEDS: TAMSULOSIN 0.4 MG CAPSULE PO SCH ×2 (08:30→22:00)
[2019-07-25] MEDS: CHLORHEXIDINE 0.12% ORAL RINSE 60 ML BOTTLE SWISH/SPIT SCH ×2 (08:31→22:00)
[2019-07-25] MEDS: hydroCHLOROthiazide 12.5 MG CAPSULE PO SCH (08:31)
[2019-07-25] MEDS: ASCORBIC ACID 500 MG TABLET PO SCH ×2 (08:31→21:58)
[2019-07-25] MEDS: MELOXICAM 7.5 MG TABLET PO SCH (08:31)
[2019-07-25] MEDS: ATENOLOL 50 MG TABLET PO SCH (08:31)
[2019-07-25] MEDS ORDERED: CLORAZEPATE 3.75 MG TABLET PO PRN (09:19)
[2019-07-25] MEDS: methylPREDNISolone SOD SUC 40 MG/1 ML VIAL IV SCH ×2 (10:57→16:53)
[2019-07-25] MEDS: ENOXAPARIN 60 MG/0.6 ML SYRINGE SUBCUT SCH (10:57)
[2019-07-25] MEDS: AMIODARONE 200 MG TABLET PO SCH (10:58)
[2019-07-25] MEDS ORDERED: ACETAMINOPHEN 325 MG TABLET PO PRN (13:46)
[2019-07-25] MEDS: SODIUM CHLORIDE 0.45% 1,000 ML IV SCH ×2 (14:40)
[2019-07-25] MEDS: PIPERACILLIN/TAZOBACTAM 3,375 MG in SODIUM CHLORIDE 0.9% 100 ML IV SCH (16:12)
[2019-07-25] MEDS: WARFARIN 5 MG TABLET PO SCH (17:38)
[2019-07-25] MEDS: ALBUTEROL/IPRATROPIUM 3 ML NEB RESP TX SCH (19:41)
[2019-07-25] MEDS: ATORVASTATIN 40 MG TABLET PO SCH (22:00)
[2019-07-26] MEDS ORDERED: FUROSEMIDE 40 MG/4 ML VIAL IV ONE ×2 (00:01→19:40)
[2019-07-26] MEDS: AMIODARONE 200 MG TABLET PO SCH (00:41)
[2019-07-26] MEDS: ALBUTEROL/IPRATROPIUM 3 ML NEB RESP TX SCH ×4 (01:27→19:14)
[2019-07-26] MEDS: INSULIN REGULAR 100 UNIT/ML SUBCUT SCH ×6 (01:28→21:17)
[2019-07-26] MEDS: PIPERACILLIN/TAZOBACTAM 3,375 MG in SODIUM CHLORIDE 0.9% 100 ML IV SCH ×3 (01:32→16:17)
[2019-07-26] MEDS: methylPREDNISolone SOD SUC 40 MG/1 ML VIAL IV SCH ×3 (02:17→17:21)
[2019-07-26 05:04] LABS: ABG Base Excess 7.8 MMOL/L (-2.5-2.5); ABG HCO3 31.4 MMOL/L (20-26); ABG PCO2 39.5 MM HG (35-48); ABG PH 7.509 (7.35-7.45); ABG PO2 54.9 MM HG (80-95)
[2019-07-26 05:13] LABS: Basophils % 0.2 % (0.0-0.8); Hemoglobin 8.9 GM/DL (14.0-18.0); Immature Granulocytes % 0.9 %; Immature Granulocytes Absolute 0.15 #; Lymphocytes # 0.7 10*3/uL (1.4-4.0); Lymphocytes % 4.3 % (21.2-54.2); Mean Corpuscular HGB Conc 34.2 GM/DL (32-36); Mean Corpuscular Volume 93.5 FL (87-102); Mean Platelet Volume 10.6 FL (9.6-12.0); Monocytes % 9.6 % (1.7-12.7); Platelet Count 123 T/CUMM (130-400); Red Blood Count 2.78 MC/CUMM (3.8-5.5); Red Cell Distribution Width 13.2 % (9.3-17.3); White Blood Count 16.8 T/CUMM (4-12)
[2019-07-26 05:39] LABS: Albumin 2.9 G/DL (3.4-5.0); Bilirubin,Direct 0.39 MG/DL (0.0-0.20); Bilirubin,Total 1.3 MG/DL (0.2-1.0); Calcium 8.4 MG/DL (8.5-10.1); Osmolality,Calculated 288.3 MOS/KG (273-304); Total Protein 6.4 G/DL (6.4-8.3)
[2019-07-26 05:54] LABS: INR 1.3; PT Patient Result 13.6 SECS (9.6-12.2)
[2019-07-26] MEDS: POTASSIUM CHLORIDE RIDER 20 MEQ in PREMIX 1 EACH IV PRN ×3 (06:20→11:40)
[2019-07-26 06:24] LABS: Band Neutrophils 1 % (0-10); Lymphocytes 5 % (20-55); Segmented Neutrophils 84 % (50-85); Total Cells Counted 100
[2019-07-26 06:25] LABS: Anisocytosis Slight; Macrocytosis Slight; Platelet Estimate Decreased
[2019-07-26] MEDS: CHLORHEXIDINE 0.12% ORAL RINSE 60 ML BOTTLE SWISH/SPIT SCH ×2 (09:31→21:20)
[2019-07-26] MEDS ORDERED: MAGNESIUM HYDROXIDE SUSP 30 ML UDCUP PO PRN (10:52)
[2019-07-26] MEDS: ENOXAPARIN 60 MG/0.6 ML SYRINGE SUBCUT SCH (11:00)
[2019-07-26] MEDS: ASCORBIC ACID 500 MG TABLET PO SCH ×2 (11:01→21:18)
[2019-07-26] MEDS: ASPIRIN EC 81 MG TABLET PO SCH (11:02)
[2019-07-26] MEDS: cloNIDine 0.1 MG TABLET PO SCH ×3 (11:02→21:20)
[2019-07-26] MEDS: TAMSULOSIN 0.4 MG CAPSULE PO SCH ×2 (11:03→21:18)
[2019-07-26] MEDS: DUTASTERIDE 0.5 MG CAPSULE PO SCH (11:03)
[2019-07-26] MEDS: hydroCHLOROthiazide 12.5 MG CAPSULE PO SCH (11:04)
[2019-07-26] MEDS: MELOXICAM 7.5 MG TABLET PO SCH (11:04)
[2019-07-26] MEDS: ATENOLOL 50 MG TABLET PO SCH (11:05)
[2019-07-26] MEDS: POTASSIUM CHLORIDE RIDER 10 MEQ in PREMIX 1 EACH IV PRN (12:06)
[2019-07-26] MEDS: SODIUM CHLORIDE 0.45% 1,000 ML IV SCH ×2 (14:50)
[2019-07-26] MEDS: WARFARIN 5 MG TABLET PO SCH (18:20)
[2019-07-26] MEDS: ATORVASTATIN 40 MG TABLET PO SCH (21:18)
[2019-07-27] MEDS: POTASSIUM CHLORIDE RIDER 20 MEQ in PREMIX 1 EACH IV PRN ×4 (00:11→06:44)
[2019-07-27] MEDS: INSULIN REGULAR 100 UNIT/ML SUBCUT SCH ×5 (00:26→21:34)
[2019-07-27] MEDS: PIPERACILLIN/TAZOBACTAM 3,375 MG in SODIUM CHLORIDE 0.9% 100 ML IV SCH ×3 (00:32→15:52)
[2019-07-27] MEDS: ALBUTEROL/IPRATROPIUM 3 ML NEB RESP TX SCH ×5 (00:41→20:03)
[2019-07-27] MEDS ORDERED: AMIODARONE INJ 50 MG in DEXTROSE 5% 100 ML IV ONE (01:44)
[2019-07-27] MEDS ORDERED: AMIODARONE 150 MG/3 ML VIAL ONE (01:50)
[2019-07-27] MEDS: methylPREDNISolone SOD SUC 40 MG/1 ML VIAL IV SCH ×3 (02:06→17:27)
[2019-07-27] MEDS: AMIODARONE INJ 450 MG in DEXTROSE 5% 241 ML IV SCH ×2 (02:20→17:27)
[2019-07-27] MEDS: dilTIAZem Drip 125 MG/125 ML PREMIX IV SCH ×2 (03:16→16:00)
[2019-07-27 04:56] LABS: Basophils % 0.2 % (0.0-0.8); Eosinophils % 0.1 % (0.00-10.9); Hematocrit 26.2 VOL% (42.0-52.0); Hemoglobin 8.6 GM/DL (14.0-18.0); Immature Granulocytes % 0.7 %; Immature Granulocytes Absolute 0.09 #; Lymphocytes # 0.7 10*3/uL (1.4-4.0); Lymphocytes % 5.3 % (21.2-54.2); Mean Corpuscular HGB Conc 32.8 GM/DL (32-36); Mean Corpuscular Volume 95.6 FL (87-102); Mean Platelet Volume 11.6 FL (9.6-12.0); Monocytes % 8.5 % (1.7-12.7); NRBC # 0.02 10*3/uL; Neutrophils % 85.2 % (38.7-73.9); Platelet Count 139 T/CUMM (130-400); Red Blood Count 2.74 MC/CUMM (3.8-5.5); Red Cell Distribution Width 13.4 % (9.3-17.3); White Blood Count 13.5 T/CUMM (4-12)
[2019-07-27 05:00] LABS: INR 1.1; PT Patient Result 12.3 SECS (9.6-12.2)
[2019-07-27 05:18] LABS: Albumin 2.6 G/DL (3.4-5.0); Bilirubin,Total 1.1 MG/DL (0.2-1.0); Calcium 8.4 MG/DL (8.5-10.1); Osmolality,Calculated 287.4 MOS/KG (273-304); Total Protein 6.1 G/DL (6.4-8.3)
[2019-07-27] MEDS: ASCORBIC ACID 500 MG TABLET PO SCH ×2 (09:03→21:41)
[2019-07-27] MEDS: TAMSULOSIN 0.4 MG CAPSULE PO SCH ×2 (09:03→21:40)
[2019-07-27] MEDS: ATENOLOL 50 MG TABLET PO SCH (09:03)
[2019-07-27] MEDS: DUTASTERIDE 0.5 MG CAPSULE PO SCH (09:03)
[2019-07-27] MEDS: ASPIRIN EC 81 MG TABLET PO SCH (09:03)
[2019-07-27] MEDS: ENOXAPARIN 60 MG/0.6 ML SYRINGE SUBCUT SCH (09:03)
[2019-07-27] MEDS: CHLORHEXIDINE 0.12% ORAL RINSE 60 ML BOTTLE SWISH/SPIT SCH ×2 (09:04→21:46)
[2019-07-27] MEDS: MELOXICAM 7.5 MG TABLET PO SCH (09:04)
[2019-07-27] MEDS: hydroCHLOROthiazide 12.5 MG CAPSULE PO SCH (09:04)
[2019-07-27] MEDS ORDERED: AMIODARONE INJ 100 MG in DEXTROSE 5% 100 ML IV ONE (09:34)
[2019-07-27] MEDS: cloNIDine 0.1 MG TABLET PO SCH (10:42)
[2019-07-27] MEDS ORDERED: ACETAMINOPHEN 325 MG TABLET PO PRN (13:24)
[2019-07-27] MEDS ORDERED: ZALEPLON 5 MG CAPSULE PO PRN (13:24)
[2019-07-27] MEDS ORDERED: MAGNESIUM SULF RIDER 2 GM in PREMIX 1 EACH IV PRN (13:24)
[2019-07-27] MEDS ORDERED: MAGNESIUM SULF RIDER 4 GM in PREMIX 1 EACH IV PRN (13:24)
[2019-07-27] MEDS ORDERED: GLUCAGON 1 MG VIAL IM PRN ×2 (13:24)
[2019-07-27] MEDS ORDERED: DEXTROSE 50% 25 GM/50 ML VIAL IV PRN (13:24)
[2019-07-27] MEDS ORDERED: POTASSIUM CHLORIDE 20 MEQ TABLET PO PRN (13:24)
[2019-07-27] MEDS ORDERED: MAGNESIUM HYDROXIDE SUSP 30 ML UDCUP PO PRN (13:24)
[2019-07-27] MEDS ORDERED: DEXTROSE 10% 250 ML BAG IV PRN (13:24)
[2019-07-27] MEDS ORDERED: LACTULOSE 20 GM/30 ML UDCUP PO PRN (13:24)
[2019-07-27] MEDS ORDERED: SODIUM CHLOR 0.45% KCL 20 MEQ 20 MEQ/1,000 ML BAG IV SCH (13:24)
[2019-07-27] MEDS ORDERED: WARFARIN 7.5 MG TABLET PO SCH (18:00)
[2019-07-27] MEDS: ATORVASTATIN 40 MG TABLET PO SCH (21:40)
[2019-07-28] MEDS: PIPERACILLIN/TAZOBACTAM 3,375 MG in SODIUM CHLORIDE 0.9% 100 ML IV SCH ×3 (00:18→16:27)
[2019-07-28] MEDS: ALBUTEROL/IPRATROPIUM 3 ML NEB RESP TX SCH ×4 (00:40→20:57)
[2019-07-28] MEDS: methylPREDNISolone SOD SUC 40 MG/1 ML VIAL IV SCH ×3 (01:45→22:07)
[2019-07-28 04:47] LABS: Basophils % 0.1 % (0.0-0.8); Hematocrit 26.8 VOL% (42.0-52.0); Hemoglobin 8.8 GM/DL (14.0-18.0); Immature Granulocytes % 0.7 %; Immature Granulocytes Absolute 0.08 #; Lymphocytes # 0.8 10*3/uL (1.4-4.0); Lymphocytes % 6.5 % (21.2-54.2); Mean Corpuscular HGB Conc 32.8 GM/DL (32-36); Mean Corpuscular Volume 94.7 FL (87-102); Mean Platelet Volume 10.1 FL (9.6-12.0); Monocytes % 8.6 % (1.7-12.7); NRBC # 0.03 10*3/uL; Neutrophils % 84.1 % (38.7-73.9); Platelet Count 209 T/CUMM (130-400); Red Blood Count 2.83 MC/CUMM (3.8-5.5); Red Cell Distribution Width 13.5 % (9.3-17.3); White Blood Count 11.7 T/CUMM (4-12)
[2019-07-28 05:12] LABS: Calcium 8.3 MG/DL (8.5-10.1); Osmolality,Calculated 289.4 MOS/KG (273-304)
[2019-07-28 05:18] LABS: Alanine Aminotransferase 46 U/L (16-61); Albumin 2.7 G/DL (3.4-5.0); Alkaline Phosphatase 54 U/L (45-117); Aspartate Amino Transferase 33 U/L (0-37); Bilirubin,Indirect 0.5 MG/DL (0.0-1.0); Blood Urea Nitrogen 31 MG/DL (7-18); Calcium 8.4 MG/DL (8.5-10.1); Estimated Glom Filtration Rate 119 ML/MIN; Glucose 163 MG/DL (74-106); Osmolality,Calculated 291.3 MOS/KG (273-304); Total Protein 6.5 G/DL (6.4-8.3)
[2019-07-28] MEDS ORDERED: FUROSEMIDE 40 MG/4 ML VIAL IV ONE (06:00)
[2019-07-28] MEDS: ENOXAPARIN 60 MG/0.6 ML SYRINGE SUBCUT SCH (09:11)
[2019-07-28] MEDS: ASCORBIC ACID 500 MG TABLET PO SCH ×2 (09:12→22:03)
[2019-07-28] MEDS: DUTASTERIDE 0.5 MG CAPSULE PO SCH (09:12)
[2019-07-28] MEDS: INSULIN REGULAR 100 UNIT/ML SUBCUT SCH ×4 (09:12→22:17)
[2019-07-28] MEDS: MELOXICAM 7.5 MG TABLET PO SCH (09:13)
[2019-07-28] MEDS: TAMSULOSIN 0.4 MG CAPSULE PO SCH ×2 (09:13→22:02)
[2019-07-28] MEDS: hydroCHLOROthiazide 12.5 MG CAPSULE PO SCH (09:13)
[2019-07-28] MEDS: POTASSIUM CHLORIDE 20 MEQ TABLET PO PRN ×4 (09:14→22:03)
[2019-07-28] MEDS: PANTOPRAZOLE 40 MG TABLET PO SCH (09:14)
[2019-07-28] MEDS: ATENOLOL 50 MG TABLET PO SCH (09:14)
[2019-07-28] MEDS: DOCUSATE SODIUM 100 MG CAPSULE PO SCH (09:14)
[2019-07-28] MEDS: ASPIRIN EC 81 MG TABLET PO SCH (09:14)
[2019-07-28] MEDS: FERROUS SULFATE 325 MG TABLET PO SCH (09:14)
[2019-07-28] MEDS: CHLORHEXIDINE 0.12% ORAL RINSE 60 ML BOTTLE SWISH/SPIT SCH ×2 (09:14→22:18)
[2019-07-28 10:21] LABS: INR 1.9; PT Patient Result 20.5 SECS (9.6-12.2)
[2019-07-28] MEDS: DILTIAZEM 60 MG TABLET PO SCH ×4 (10:43→22:02)
[2019-07-28] MEDS: AMIODARONE INJ 450 MG in DEXTROSE 5% 241 ML IV SCH (11:15)
[2019-07-28] MEDS ORDERED: POTASSIUM CHLORIDE 20 MEQ TABLET PO ONE (11:51)
[2019-07-28] MEDS: ONDANSETRON 4 MG/2 ML VIAL IV PRN ×2 (13:18→17:43)
[2019-07-28] MEDS: dilTIAZem Drip 125 MG/125 ML PREMIX IV SCH (13:54)
[2019-07-28] MEDS: WARFARIN 5 MG TABLET PO SCH (17:16)
[2019-07-28 17:26] LABS: Calcium 8.4 MG/DL (8.5-10.1); Osmolality,Calculated 286.4 MOS/KG (273-304)
[2019-07-28] MEDS: ATORVASTATIN 40 MG TABLET PO SCH (22:02)
[2019-07-29] MEDS: PIPERACILLIN/TAZOBACTAM 3,375 MG in SODIUM CHLORIDE 0.9% 100 ML IV SCH ×2 (00:16→09:29)
[2019-07-29] MEDS: POTASSIUM CHLORIDE 20 MEQ TABLET PO PRN (00:24)
[2019-07-29] MEDS: oxyCODONE/ACETAMINOPHEN 5-325 MG TABLET PO PRN ×2 (00:25→20:27)
[2019-07-29] MEDS: ALBUTEROL/IPRATROPIUM 3 ML NEB RESP TX SCH ×3 (02:24→20:02)
[2019-07-29] MEDS: AMIODARONE INJ 450 MG in DEXTROSE 5% 241 ML IV SCH (04:09)
[2019-07-29 04:53] LABS: Basophils % 0.1 % (0.0-0.8); Hematocrit 26.3 VOL% (42.0-52.0); Hemoglobin 8.6 GM/DL (14.0-18.0); Immature Granulocytes Absolute 0.11 #; Lymphocytes # 0.8 10*3/uL (1.4-4.0); Lymphocytes % 6.9 % (21.2-54.2); Mean Corpuscular HGB Conc 32.7 GM/DL (32-36); Mean Corpuscular Volume 97.8 FL (87-102); Monocytes % 8.1 % (1.7-12.7); NRBC # 0.05 10*3/uL; Neutrophils % 83.9 % (38.7-73.9); Platelet Count 256 T/CUMM (130-400); Red Blood Count 2.69 MC/CUMM (3.8-5.5); Red Cell Distribution Width 13.7 % (9.3-17.3)
[2019-07-29 05:05] LABS: INR 2.6
[2019-07-29 05:11] LABS: Alanine Aminotransferase 37 U/L (16-61); Albumin 2.6 G/DL (3.4-5.0); Alkaline Phosphatase 51 U/L (45-117); Aspartate Amino Transferase 21 U/L (0-37); Bilirubin,Indirect 0.5 MG/DL (0.0-1.0); Blood Urea Nitrogen 29 MG/DL (7-18); Calcium 8.2 MG/DL (8.5-10.1); Estimated Glom Filtration Rate 119 ML/MIN; Glucose 143 MG/DL (74-106); Osmolality,Calculated 288.3 MOS/KG (273-304); Total Protein 6.2 G/DL (6.4-8.3)
[2019-07-29 05:20] LABS: PT Patient Result 28.3 SECS (9.6-12.2)
[2019-07-29] MEDS: methylPREDNISolone SOD SUC 40 MG/1 ML VIAL IV SCH (09:29)
[2019-07-29] MEDS: DILTIAZEM 60 MG TABLET PO SCH ×4 (09:31→20:27)
[2019-07-29] MEDS: DUTASTERIDE 0.5 MG CAPSULE PO SCH (09:31)
[2019-07-29] MEDS: hydroCHLOROthiazide 12.5 MG CAPSULE PO SCH (09:31)
[2019-07-29] MEDS: METOPROLOL TARTRATE 50 MG TABLET PO SCH ×2 (09:31→20:28)
[2019-07-29] MEDS: TAMSULOSIN 0.4 MG CAPSULE PO SCH ×2 (09:31→20:28)
[2019-07-29] MEDS: PANTOPRAZOLE 40 MG TABLET PO SCH (09:31)
[2019-07-29] MEDS: MELOXICAM 7.5 MG TABLET PO SCH (09:31)
[2019-07-29] MEDS: DOCUSATE SODIUM 100 MG CAPSULE PO SCH (09:31)
[2019-07-29] MEDS: ASCORBIC ACID 500 MG TABLET PO SCH ×2 (09:31→20:27)
[2019-07-29] MEDS: INSULIN REGULAR 100 UNIT/ML SUBCUT SCH ×4 (09:31→20:26)
[2019-07-29] MEDS: FERROUS SULFATE 325 MG TABLET PO SCH (09:31)
[2019-07-29] MEDS: ASPIRIN EC 81 MG TABLET PO SCH (09:31)
[2019-07-29] MEDS: CHLORHEXIDINE 0.12% ORAL RINSE 60 ML BOTTLE SWISH/SPIT SCH ×2 (09:32→20:28)
[2019-07-29] MEDS: dilTIAZem Drip 125 MG/125 ML PREMIX IV SCH (09:32)
[2019-07-29] MEDS: predniSONE 10 MG TABLET PO SCH ×2 (11:07→20:28)
[2019-07-29] MEDS: AMIODARONE 200 MG TABLET PO SCH ×2 (11:07→20:27)
[2019-07-29] MEDS: ALBUTEROL 1.25 MG/3 ML NEB RESP TX SCH ×2 (13:35→20:08)
[2019-07-29] MEDS: WARFARIN 5 MG TABLET PO SCH (17:51)
[2019-07-29] MEDS: ATORVASTATIN 40 MG TABLET PO SCH (20:27)
[2019-07-30] MEDS: ALBUTEROL 1.25 MG/3 ML NEB RESP TX SCH ×5 (00:47→20:32)
[2019-07-30] MEDS: dilTIAZem Drip 125 MG/125 ML PREMIX IV SCH (02:52)
[2019-07-30 05:26] LABS: Basophils % 0.1 % (0.0-0.8); Hematocrit 29.9 VOL% (42.0-52.0); Hemoglobin 9.7 GM/DL (14.0-18.0); Immature Granulocytes % 1.8 %; Immature Granulocytes Absolute 0.28 #; Lymphocytes # 1.5 10*3/uL (1.4-4.0); Lymphocytes % 9.7 % (21.2-54.2); Mean Corpuscular HGB Conc 32.4 GM/DL (32-36); Mean Platelet Volume 9.8 FL (9.6-12.0); Monocytes % 11.3 % (1.7-12.7); NRBC # 0.17 10*3/uL; Neutrophils % 77.1 % (38.7-73.9); Platelet Count 319 T/CUMM (130-400); Red Blood Count 3.05 MC/CUMM (3.8-5.5); Red Cell Distribution Width 13.8 % (9.3-17.3); White Blood Count 15.8 T/CUMM (4-12)
[2019-07-30 05:28] LABS: INR 3.2
[2019-07-30 05:30] LABS: PT Patient Result 34.6 SECS (9.6-12.2)
[2019-07-30 05:49] LABS: Calcium 8.5 MG/DL (8.5-10.1); Osmolality,Calculated 292.1 MOS/KG (273-304)
[2019-07-30] MEDS ORDERED: DIGOXIN 0.5 MG/2 ML AMP IV ONE (08:00)
[2019-07-30] MEDS: TAMSULOSIN 0.4 MG CAPSULE PO SCH ×2 (09:58→21:52)
[2019-07-30] MEDS: DOCUSATE SODIUM 100 MG CAPSULE PO SCH (09:58)
[2019-07-30] MEDS: FERROUS SULFATE 325 MG TABLET PO SCH (09:58)
[2019-07-30] MEDS: MELOXICAM 7.5 MG TABLET PO SCH (09:58)
[2019-07-30] MEDS: ASCORBIC ACID 500 MG TABLET PO SCH ×2 (09:58→21:51)
[2019-07-30] MEDS: predniSONE 10 MG TABLET PO SCH (09:59)
[2019-07-30] MEDS: ASPIRIN EC 81 MG TABLET PO SCH (09:59)
[2019-07-30] MEDS: DILTIAZEM 60 MG TABLET PO SCH ×4 (09:59→21:51)
[2019-07-30] MEDS: DUTASTERIDE 0.5 MG CAPSULE PO SCH (09:59)
[2019-07-30] MEDS: AMIODARONE 200 MG TABLET PO SCH ×2 (09:59→21:51)
[2019-07-30] MEDS: METOPROLOL TARTRATE 50 MG TABLET PO SCH ×2 (09:59→21:52)
[2019-07-30] MEDS: hydroCHLOROthiazide 12.5 MG CAPSULE PO SCH (09:59)
[2019-07-30] MEDS: PANTOPRAZOLE 40 MG TABLET PO SCH (09:59)
[2019-07-30] MEDS: CHLORHEXIDINE 0.12% ORAL RINSE 60 ML BOTTLE SWISH/SPIT SCH ×2 (10:01→21:52)
[2019-07-30] MEDS: SODIUM CHLORIDE 0.45% 1,000 ML IV SCH ×3 (10:14→21:50)
[2019-07-30] MEDS: INSULIN REGULAR 100 UNIT/ML SUBCUT SCH ×4 (10:15→21:50)
[2019-07-30] MEDS ORDERED: fentaNYL 100 MCG/2 ML VIAL ONE (15:54)
[2019-07-30] MEDS ORDERED: PROPOFOL 200 MG/20 ML VIAL IV ONE (16:32)
[2019-07-30] MEDS ORDERED: LIDOCAINE 2% 5 ML VIAL ONE (16:32)
[2019-07-30] MEDS ORDERED: ETOMIDATE 40 MG/20 ML VIAL IV ONE (16:32)
[2019-07-30] MEDS: oxyCODONE/ACETAMINOPHEN 5-325 MG TABLET PO PRN ×2 (17:03→21:59)
[2019-07-30] MEDS: ALBUTEROL/IPRATROPIUM 3 ML NEB RESP TX SCH ×3 (17:44→17:47)
[2019-07-30] MEDS: WARFARIN 2.5 MG TABLET PO SCH (19:00)
[2019-07-30] MEDS: ATORVASTATIN 40 MG TABLET PO SCH (21:52)
[2019-07-30] MEDS: predniSONE 5 MG TABLET PO SCH (21:53)
[2019-07-31] MEDS: ALBUTEROL 1.25 MG/3 ML NEB RESP TX SCH ×4 (02:15→19:52)
[2019-07-31] MEDS: oxyCODONE/ACETAMINOPHEN 5-325 MG TABLET PO PRN (03:59)
[2019-07-31 05:16] LABS: Basophils % 0.1 % (0.0-0.8); Eosinophils % 0.4 % (0.00-10.9); Hematocrit 30.9 VOL% (42.0-52.0); Hemoglobin 9.9 GM/DL (14.0-18.0); Immature Granulocytes % 1.4 %; Immature Granulocytes Absolute 0.16 #; Lymphocytes # 1.2 10*3/uL (1.4-4.0); Lymphocytes % 10.9 % (21.2-54.2); Mean Corpuscular Volume 97.5 FL (87-102); Mean Platelet Volume 9.4 FL (9.6-12.0); Monocytes % 11.7 % (1.7-12.7); NRBC # 0.07 10*3/uL; Neutrophils % 75.5 % (38.7-73.9); Platelet Count 311 T/CUMM (130-400); Red Blood Count 3.17 MC/CUMM (3.8-5.5); Red Cell Distribution Width 13.8 % (9.3-17.3); White Blood Count 11.3 T/CUMM (4-12)
[2019-07-31 05:36] LABS: INR 3.4
[2019-07-31 05:45] LABS: PT Patient Result 36.4 SECS (9.6-12.2)
[2019-07-31 05:49] LABS: Alanine Aminotransferase 28 U/L (16-61); Albumin 2.6 G/DL (3.4-5.0); Alkaline Phosphatase 50 U/L (45-117); Aspartate Amino Transferase 15 U/L (0-37); Bilirubin,Indirect 0.5 MG/DL (0.0-1.0); Blood Urea Nitrogen 31 MG/DL (7-18); Calcium 7.9 MG/DL (8.5-10.1); Estimated Glom Filtration Rate 111 ML/MIN; Glucose 98 MG/DL (74-106); Osmolality,Calculated 281.7 MOS/KG (273-304); Total Protein 5.7 G/DL (6.4-8.3)
[2019-07-31] MEDS: INSULIN REGULAR 100 UNIT/ML SUBCUT SCH ×4 (09:47→20:51)
[2019-07-31] MEDS: SODIUM CHLORIDE 0.45% 1,000 ML IV SCH ×2 (09:49→14:48)
[2019-07-31] MEDS: DILTIAZEM 60 MG TABLET PO SCH ×4 (09:52→20:51)
[2019-07-31] MEDS: AMIODARONE 200 MG TABLET PO SCH ×2 (09:53→20:51)
[2019-07-31] MEDS: FERROUS SULFATE 325 MG TABLET PO SCH (09:53)
[2019-07-31] MEDS: ASCORBIC ACID 500 MG TABLET PO SCH ×2 (09:53→20:53)
[2019-07-31] MEDS: hydroCHLOROthiazide 12.5 MG CAPSULE PO SCH (09:53)
[2019-07-31] MEDS: DOCUSATE SODIUM 100 MG CAPSULE PO SCH (09:54)
[2019-07-31] MEDS: PANTOPRAZOLE 40 MG TABLET PO SCH (09:54)
[2019-07-31] MEDS: MELOXICAM 7.5 MG TABLET PO SCH (09:54)
[2019-07-31] MEDS: METOPROLOL TARTRATE 50 MG TABLET PO SCH ×2 (09:54→20:53)
[2019-07-31] MEDS: TAMSULOSIN 0.4 MG CAPSULE PO SCH ×2 (09:54→20:53)
[2019-07-31] MEDS: predniSONE 5 MG TABLET PO SCH ×2 (09:54→20:53)
[2019-07-31] MEDS: ASPIRIN EC 81 MG TABLET PO SCH (09:54)
[2019-07-31] MEDS: DUTASTERIDE 0.5 MG CAPSULE PO SCH (09:54)
[2019-07-31] MEDS: CHLORHEXIDINE 0.12% ORAL RINSE 60 ML BOTTLE SWISH/SPIT SCH ×2 (09:54→20:53)
[2019-07-31] MEDS: POTASSIUM CHLORIDE 20 MEQ TABLET PO PRN ×3 (09:59→17:17)
[2019-07-31] MEDS: WARFARIN 2.5 MG TABLET PO SCH (17:17)
[2019-07-31] MEDS: ALUMINUM/MAGNES/SIMETH MAX STR 30 ML UDCUP PO PRN (17:21)
[2019-07-31] MEDS: ATORVASTATIN 40 MG TABLET PO SCH (20:52)
[2019-08-01] MEDS: ALBUTEROL 1.25 MG/3 ML NEB RESP TX SCH ×2 (02:27→07:30)
[2019-08-01] MEDS: ALUMINUM/MAGNES/SIMETH MAX STR 30 ML UDCUP PO PRN (04:40)
[2019-08-01] MEDS: ONDANSETRON 4 MG/2 ML VIAL IV PRN (04:40)
[2019-08-01 05:12] LABS: Basophils % 0.1 % (0.0-0.8); Eosinophils # 0.1 10*3/uL (0.0-0.87); Eosinophils % 0.6 % (0.00-10.9); Hematocrit 31.6 VOL% (42.0-52.0); Hemoglobin 10.3 GM/DL (14.0-18.0); Immature Granulocytes % 0.9 %; Lymphocytes # 1.2 10*3/uL (1.4-4.0); Lymphocytes % 11.4 % (21.2-54.2); Mean Corpuscular HGB Conc 32.6 GM/DL (32-36); Mean Corpuscular Volume 96.3 FL (87-102); Mean Platelet Volume 9.3 FL (9.6-12.0); Monocytes % 10.4 % (1.7-12.7); NRBC # 0.02 10*3/uL; Neutrophils % 76.6 % (38.7-73.9); Platelet Count 329 T/CUMM (130-400); Red Blood Count 3.28 MC/CUMM (3.8-5.5); Red Cell Distribution Width 13.4 % (9.3-17.3); White Blood Count 10.8 T/CUMM (4-12)
[2019-08-01 05:18] LABS: INR 2.7; PT Patient Result 29.1 SECS (9.6-12.2)
[2019-08-01 05:51] LABS: Alanine Aminotransferase 25 U/L (16-61); Albumin 2.7 G/DL (3.4-5.0); Alkaline Phosphatase 49 U/L (45-117); Aspartate Amino Transferase 16 U/L (0-37); Bilirubin,Indirect 0.8 MG/DL (0.0-1.0); Blood Urea Nitrogen 24 MG/DL (7-18); Calcium 8.2 MG/DL (8.5-10.1); Estimated Glom Filtration Rate 118 ML/MIN; Glucose 105 MG/DL (74-106); Osmolality,Calculated 282.4 MOS/KG (273-304); Total Protein 5.8 G/DL (6.4-8.3)
[2019-08-01 05:55] LABS: Troponin I 0.907 NG/ML (0.00-0.045)
[2019-08-01 08:00] VITALS: BP 150/91
[2019-08-01] MEDS ORDERED: METOPROLOL SUCCINATE XL 50 MG TABLET PO SCH (09:00)
[2019-08-01] MEDS ORDERED: DILTIAZEM CD 240 MG CAPSULE PO SCH (09:00)
[2019-08-01] MEDS: INSULIN REGULAR 100 UNIT/ML SUBCUT SCH ×2 (09:59→12:22)
[2019-08-01] MEDS: DUTASTERIDE 0.5 MG CAPSULE PO SCH (10:02)
[2019-08-01] MEDS: PANTOPRAZOLE 40 MG TABLET PO SCH (10:02)
[2019-08-01] MEDS: AMIODARONE 200 MG TABLET PO SCH (10:02)
[2019-08-01] MEDS: ASPIRIN EC 81 MG TABLET PO SCH (10:03)
[2019-08-01] MEDS: hydroCHLOROthiazide 12.5 MG CAPSULE PO SCH (10:03)
[2019-08-01] MEDS: TAMSULOSIN 0.4 MG CAPSULE PO SCH (10:03)
[2019-08-01] MEDS: predniSONE 5 MG TABLET PO SCH (10:03)
[2019-08-01] MEDS: DOCUSATE SODIUM 100 MG CAPSULE PO SCH (10:04)
[2019-08-01] MEDS: ASCORBIC ACID 500 MG TABLET PO SCH (10:04)
[2019-08-01] MEDS: MELOXICAM 7.5 MG TABLET PO SCH (10:04)
[2019-08-01] MEDS: FERROUS SULFATE 325 MG TABLET PO SCH (10:04)
[2019-08-01] MEDS: CHLORHEXIDINE 0.12% ORAL RINSE 60 ML BOTTLE SWISH/SPIT SCH (10:05)
== END 2019-08-01 12:25 | disposition home health service (06) | DRG 219 ==
LOC: N.TELEN 08:39 → N.CVR 07-23 09:18 → N.ICU 07-24 11:36 → N.TELES 07-27 12:50